=== PATIENT | female | born 1945 | race Caucasian/White ===

== ENCOUNTER 2017-03-16 10:17 | Outpatient (CLI) | payer MEDICARE, BC ==
[~2017-03-16 10:17] MED LIST: ALLO300T2 PO; AMIO200T PO; ASPI81TA2 PO; CHOL200016 PO; FAMO-131 PO; FURO-145 PO; GEMF600T3 PO; HYDR-3976 PO; LEVO50TA PO; LOSA100T3 PO; METO-304 PO; SIMV20TA6 PO; SITA1TAB6 PO; WARF2TAB57 PO
[2017-03-16] MEDS ORDERED: REGADENOSON 0.4 MG/5 ML DISP.SYRIN IVP ONE (11:30)
== END 2017-03-16 23:59 | disposition home or self-care (01) ==
LOC: RAD 10:17
PROVIDERS: ATTEND Internal Medicine Cardiovascular Disease
DX: I48.91 Unspecified atrial fibrillation (principal); I10 Essential (primary) hypertension; E11.9 Type 2 diabetes mellitus without complications
CPT/HCPCS: 78452; A9502; J2785

== ENCOUNTER 2019-03-01 16:28 | Outpatient (CLI) | payer BC, MEDICARE ==
[~2019-03-01 16:28] MED LIST changes: +ASPI-1238 PO; -ASPI81TA2 PO; -CHOL200016 PO; +CHOL200059 PO; -GEMF600T3 PO; +GEMF600T5 PO; -METO-304 PO; +METO-357 PO; +SIMV-46 PO; -SIMV20TA6 PO
[2019-03-01 16:56] LABS: BASOPHILS # (AUTO) 0.1 /CMM (0.0-0.2); BASOPHILS % (AUTO) 0.6 % (0.0-2.0); EOSINOPHILS % (AUTO) 0.8 % (0.0-6.0); HEMATOCRIT 46 % (33-45); HEMOGLOBIN 15.3 g/dL (11.5-14.8); LYMPHOCYTES # (AUTO) 1.2 /CMM (0.8-4.8); LYMPHOCYTES % (AUTO) 12.2 % (20.0-44.0); MEAN CORPUSCULAR HGB CONC 33 g/dl (31.0-36.0); MEAN CORPUSCULAR VOLUME 89 fL (82-100); MONOCYTES # (AUTO) 0.9 /CMM (0.1-1.30); MONOCYTES % (AUTO) 9.2 % (2.0-12.0); NEUTROPHILS # (AUTO) 7.9 /CMM (1.8-8.9); NEUTROPHILS % (AUTO) 77.2 % (43.0-81.0); PLATELET COUNT (AUTO) 302 /CMM (150-450); WHITE BLOOD COUNT (AUTO) 10.2 K/uL (4.3-11.0)
== END 2019-03-01 23:59 | disposition home or self-care (01) ==
LOC: LAB 16:28
PROVIDERS: ATTEND Internal Medicine Cardiovascular Disease
DX: K91.871 Postprocedural hematoma of a digestive system organ or structure following other procedure (principal); M84.48XD Pathological fracture, other site, subsequent encounter for fracture with routine healing; I25.10 Atherosclerotic heart disease of native coronary artery without angina pectoris; I77.810 Thoracic aortic ectasia; K80.20 Calculus of gallbladder without cholecystitis without obstruction; K83.8 Other specified diseases of biliary tract; N32.89 Other specified disorders of bladder; K57.30 Diverticulosis of large intestine without perforation or abscess without bleeding; I70.0 Atherosclerosis of aorta; K44.9 Diaphragmatic hernia without obstruction or gangrene; J98.11 Atelectasis; R91.8 Other nonspecific abnormal finding of lung field; N28.1 Cyst of kidney, acquired; I48.20 Chronic atrial fibrillation, unspecified; Q25.46 Tortuous aortic arch; I10 Essential (primary) hypertension; E11.9 Type 2 diabetes mellitus without complications
CPT/HCPCS: 36415; 71250-TC; 85025-TC; 85610-TC